=== PATIENT | female | born 1945 | race Caucasian/White ===

== ENCOUNTER 2019-05-01 12:05 | Emergency (ER) | payer MEDICARE, OTHER ==
[~2019-05-01] VITALS: Ht 162.6 cm; Wt 122.5 kg
[~2019-05-01 12:05] MED LIST: ACET500 PO; ALBU90OI6 INH; ALBU90OI61 INH; ALIS150T PO; ALPR.5 PO; ALPR.5CR PO; AMIO200 PO; ASPI325 PO; ASPI81CH PO; AZIT250 PO; Amiodarone HCl200 MG PO; BENZ100A PO; BIOTIN PO; Bactrim Ds Tab1 EACH PO; CALMAGZIN PO; CELE200 PO; CHOL10002 PO; CITA20 PO; CLON.1 PO; CLON.2 PO; CLOP75 PO; Catapres0.1 MG PO; Coumadin5 MG PO; Cymbalta60 MG PO; DEXILANT PO; DIPH50 PO; ENOX100I SC; ENOX40I SC; ERGO400 PO; FISH OIL 1,001000 MG PO; FISH1000 PO; FLUR15 PO; FURO40 PO; FURO80 PO; GABA100 PO; GABA300 PO; GLIP5ER PO; GLUCHON PO; HYDACE7.5 PO; HYDCHL12.5 PO; HYDR-86 PO; HYDR1TAB94 PO; Halcion0.25 MG PO; Hydrocodone-Ap1 EA23 PO; IRON PO; Isosorbide Mono30 MG PO; JANUMET PO; LEVFLO500 PO; LEVSOD100 PO; LEVSOD50 PO; LOSA50 PO; MAGNESIUM PO; MAGOXI400 PO; MECL25 PO; MELA3 PO; METF500 PO; METF500C PO; METO100 PO; METO100ER PO; METO2.5 PO; METO50ER PO; MULTIVITAMIN PO; MULVITMIND PO; NAPR500 PO; OLME20 PO; OMEP20ER PO; OXYACE5T PO; Omeprazole20 M1 PO; POTA10T PO; POTCHL10ER PO; POTCHL20ER PO; PRAV20 PO; PRAVASTATIN PO; PROM25 PO; Pedi-Dri 100,0060 GM TOP; Percocet 10-321 EACH PO; Percocet 5-3251 EACH PO; ROXICODONE5 MG PO; SERT100 PO; SITA50T2 PO; TEKTURNA PO; TERA5 PO; VENL75ER PO; VITAMIN D PO; WARF4 PO; WARF5 PO
[2019-05-01 12:58] LABS: BASOPHILS ABSOLUTE AUTO 0.03 K/mm3 (0.00-0.23); BASOPHILS PERCENT AUTO 1 % (0-2); EOSINOPHILS ABSOLUTE AUTO 0.21 K/mm3 (0.00-0.68); EOSINOPHILS PERCENT AUTO 4 % (0-6); Hematocrit 37.9 % (33.0-51.0); IMMATURE GRAN ABSOLUTE AUTO 0.02 K/mm3 (0.00-0.10); IMMATURE GRAN PERCENT AUTO 0 % (0-1); LYMPHOCYTES ABSOLUTE AUTO 1.53 K/mm3 (0.84-5.20); LYMPHOCYTES PERCENT AUTO 27 % (21-46); MONOCYTES ABSOLUTE AUTO 0.65 K/mm3 (0.16-1.47); MONOCYTES PERCENT AUTO 12 % (4-13); Mean Corpuscular HGB 28.6 pg (26.0-34.0); Mean Corpuscular HGB Conc 31.7 g/dL (31.5-36.5); Mean Corpuscular Volume 91 fL (80-100); Mean Platelet Volume 9.4 fL (9.1-12.4); NEUTROPHILS ABSOLUTE AUTO 3.21 K/mm3 (1.96-9.15); NEUTROPHILS PERCENT AUTO 57 % (41-73); Platelet Count 250 K/mm3 (150-400); RDW Coefficient Variation 13.7 % (11.7-14.2); RDW Standard Deviation 45.3 fL (35.1-46.3); Red Blood Cell Count 4.19 M/mm3 (3.80-5.20); White Blood Cell Count 5.65 K/mm3 (4.00-11.30)
[2019-05-01 13:18] LABS: Albumin, Blood 3.6 g/dL (3.4-5.0); Albumin/Globulin Ratio 1.1 (0.8-1.8); Bilirubin, Total 0.4 mg/dL (0.1-1.0); Bun/Creatinine Ratio 45.3 (12.0-20.0); Calcium, Blood 8.6 mg/dL (8.5-10.1); Creatinine, Blood 1.17 mg/dL (0.40-1.00); Globulin, Blood 3.3 g/dL (2.2-4.0); Potassium, Blood 3.6 mmol/L (3.5-5.5); Total Protein, Blood 6.9 g/dL (6.4-8.2)
[2019-05-01 13:21] LABS: International Normalized Ratio 1.52; Prothrombin Time Results 15.5 Sec (9.7-11.5)
== END 2019-05-01 14:18 | disposition home or self-care (01) ==
LOC: ER 12:05
PROVIDERS: Emergency Medicine
DX: R19.5 Other fecal abnormalities (principal); R79.1 Abnormal coagulation profile; R11.0 Nausea; E11.9 Type 2 diabetes mellitus without complications; I48.91 Unspecified atrial fibrillation; I10 Essential (primary) hypertension; Z86.73 Personal history of transient ischemic attack (TIA), and cerebral infarction without residual deficits; Z87.891 Personal history of nicotine dependence; Z88.0 Allergy status to penicillin; Z88.8 Allergy status to other drugs, medicaments and biological substances; Z91.040 Latex allergy status; Z79.899 Other long term (current) drug therapy; Z79.82 Long term (current) use of aspirin; Z79.01 Long term (current) use of anticoagulants; Z79.891 Long term (current) use of opiate analgesic
CPT/HCPCS: 36415; 80053; 82272; 85025; 85610; 99283

== ENCOUNTER 2019-10-22 07:18 | Day surgery (SDC) | payer MEDICARE, OTHER ==
[~2019-10-22 07:18] MED LIST changes: +TELM80 PO; +XARELTO15 MG PO
--- NOTE | 2019-10-22 08:07 | NUR ---
PATIENT WITH HR 67 AFTER IV START, PLAN TO ADMINISTER METOPROLOL 5 MG IV AND REASSESS FOR READINESS FOR EXAM. PATIENT PLACED ON MONITOR DURING IV ADMINISTRATION.
--- NOTE | 2019-10-22 08:23 | NUR ---
HEART RATE TO 60 BPM, TO CT FOR EXAM.
--- NOTE | 2019-10-22 09:04 | NUR ---
DISCHARGE INSTRUCTIONS GIVEN WITH STATED UNDERSTANDING. PATIENT AMBULATORY TO DISCHARGE.
== END 2019-10-22 22:46 | disposition home or self-care (01) ==
LOC: ORD 07:18 → CT 07:18 → ORD 07:30 → CT 08:00 → ORD 22:46
DX: I25.118 Atherosclerotic heart disease of native coronary artery with other forms of angina pectoris (principal); E11.9 Type 2 diabetes mellitus without complications; E78.5 Hyperlipidemia, unspecified; I11.0 Hypertensive heart disease with heart failure; I50.9 Heart failure, unspecified; I44.7 Left bundle-branch block, unspecified; I48.0 Paroxysmal atrial fibrillation; G47.33 Obstructive sleep apnea (adult) (pediatric); Z79.01 Long term (current) use of anticoagulants; Z79.899 Other long term (current) drug therapy; Z79.84 Long term (current) use of oral hypoglycemic drugs; Z87.891 Personal history of nicotine dependence; Z88.8 Allergy status to other drugs, medicaments and biological substances; Z88.0 Allergy status to penicillin
CPT/HCPCS: 75574; Q9967

== ENCOUNTER 2019-10-25 05:46 | Day surgery (SDC) | payer MEDICARE, OTHER ==
[~2019-10-25] VITALS: Ht 162.6 cm; Wt 125.0 kg
--- NOTE | 2019-10-25 13:40 | NUR ---
DISCHARGE GONE OVER WITH PT AND FRIEND, BOTH VERBALIZE UNDERSTANDING OF INSTRUCTIONS. SALINE LOCK OUT WITH CATHETER INTACT. TR BAND OFF, NO BLEEDING NOTED. CLOTH DOT PLACED OVER RIGHT RADIAL SITE. PT TO PRIVATE VEHICLE PER ESCORT AND W/C.
== END 2019-10-25 13:51 | disposition home or self-care (01) ==
LOC: MHTC 05:46
PROC: 4A023N8 Measurement of Cardiac Sampling and Pressure, Bilateral, Percutaneous Approach (ICD-10-PCS; principal; 2019-10-25)
PROC: B201YZZ Plain Radiography of Multiple Coronary Arteries using Other Contrast (ICD-10-PCS; principal; 2019-10-25)
PROC: B206YZZ Plain Radiography of Right and Left Heart using Other Contrast (ICD-10-PCS; principal; 2019-10-25)
DX: I25.10 Atherosclerotic heart disease of native coronary artery without angina pectoris (principal); I27.20 Pulmonary hypertension, unspecified; E66.01 Morbid (severe) obesity due to excess calories; I10 Essential (primary) hypertension; G47.33 Obstructive sleep apnea (adult) (pediatric); E11.42 Type 2 diabetes mellitus with diabetic polyneuropathy; E11.319 Type 2 diabetes mellitus with unspecified diabetic retinopathy without macular edema; I48.0 Paroxysmal atrial fibrillation; Z79.01 Long term (current) use of anticoagulants; Z88.8 Allergy status to other drugs, medicaments and biological substances; Z88.0 Allergy status to penicillin; Z87.891 Personal history of nicotine dependence; Z68.42 Body mass index [BMI] 45.0-49.9, adult; Z99.89 Dependence on other enabling machines and devices
CPT/HCPCS: 36415; 76937; 84132; 85347; 93460; 93571; 93572; 99152; 99153; C1769; C1887; C1894; J1644; J1940; J2250; J3010; J3480; J7030; Q9967

== ENCOUNTER 2019-11-16 14:15 | Inpatient (IN) | payer MEDICARE, OTHER ==
[~2019-11-16] VITALS: Ht 162.6 cm; Wt 124.3 kg
[2019-11-21] MEDS ORDERED: SPIR50 PO (06:25)
--- NOTE | 2019-11-21 06:42 | NUR ---
Ambulatory in Day Surgery History, Chart, Medications and Allergies reviewed before start of procedure.AUDIBLY WHEEZY, LUNGS TIGHT THROUGH OUT. SATS 92% ON RA.DUO NEB GIVEN. Patient confirms NPO status and agrees with scheduled surgery. Patient reports completing Chlorhexadine shower X2 prior to admission to hospital.Surgical site prepped with 2% Chlorhexidine cloth wipe.NOZYN AND PERIDEX PER ORTHO PROTOCOL.
[2019-11-21] MEDS ORDERED: TORSE20 PO (08:02)
--- NOTE | 2019-11-21 10:50 | NUR ---
11/21/19 1050 Nahomy Masters ALL COUNTS CORRECT
--- NOTE | 2019-11-21 19:53 | NUR ---
1240 ARRIVED TO ROOM SLING INPLACE TO LEFT ARM, DRESSING DRY AND INTACT TO LEFT SHOULDER AND POLAR PACK IN PLACE. PT REPORTS NO FEELING AT SITE OF INCISION. PT ABLE TO WIGGLE ALL FINGERS ON LEFT HAND AND SLIGHT AIRBRUSH ARTIST. PT REPORTS SOME MUSCLE CRAMP TYPE PAIN TO LEFT SIDE OF NECK AND UPPER LEFT ARM.
--- NOTE | 2019-11-21 19:55 | NUR ---
1730 OOB UP TO BATHROOM TO VOID AND THEN UP TO SIT IN CHAIR, POLAR PACK IN PLACE TO LEFT SHOULDER.
--- NOTE | 2019-11-21 19:55 | NUR ---
SUMMARY PT REPORTS NO PAIN TO LEFT SHOULDER, DRESSING DRY AND INTACT. PT REPORTS LEFT ARM AND HAND NUMB AND TINGLY. PT ABLE TO WIGGLE ALL FINGERS ON LEFT HAND AND HAS SLIGHT INSURANCE APPLICATION INVESTIGATOR. FINGERS ON LEFT HAND PINK/WARM AND RADIAL PULSES INTACT. PT SITTING IN CHAIR VISITING WITH FRIENDS
--- NOTE | 2019-11-22 04:46 | NUR ---
SHIFT SUMMARY PT IS A/O X4 AND STANDBY ASSIST FOR AMBULATION. PT HAS HAD SLING IN PLACE PER ORDERS. B/P WAS HIGH DURING THE NIGHT; PROVIDER NOTIFIED; MEDS GIVEN PER ORDERS. PT HAS AMBULATED MULT TIMES TO BATHROOM. TOLERATING PO INTAKE AND VOIDING. PT HAS HAD CPAP DURING THE NIGHT AND O2 PRN. CONT BIOX IN PLACE. PAIN MANAGED WITH PO PAIN MEDS PER ORDERS. ASSISTED WITH ADL'S PRN.
[2019-11-22 04:51] LABS: BASOPHILS ABSOLUTE AUTO 0.04 K/mm3 (0.00-0.23); BASOPHILS PERCENT AUTO 1 % (0-2); EOSINOPHILS ABSOLUTE AUTO 0.02 K/mm3 (0.00-0.68); EOSINOPHILS PERCENT AUTO 0 % (0-6); Hematocrit 30.3 % (33.0-51.0); Hemoglobin 9.7 g/dL (11.5-16.0); IMMATURE GRAN ABSOLUTE AUTO 0.06 K/mm3 (0.00-0.10); IMMATURE GRAN PERCENT AUTO 1 % (0-1); LYMPHOCYTES PERCENT AUTO 15 % (21-46); MONOCYTES ABSOLUTE AUTO 0.92 K/mm3 (0.16-1.47); MONOCYTES PERCENT AUTO 10 % (4-13); Mean Corpuscular HGB 29.8 pg (26.0-34.0); Mean Corpuscular Volume 93 fL (80-100); Mean Platelet Volume 9.4 fL (9.1-12.4); NEUTROPHILS ABSOLUTE AUTO 6.49 K/mm3 (1.96-9.15); NEUTROPHILS PERCENT AUTO 74 % (41-73); Platelet Count 210 K/mm3 (150-400); RDW Coefficient Variation 13.1 % (11.7-14.2); RDW Standard Deviation 44.6 fL (35.1-46.3); Red Blood Cell Count 3.26 M/mm3 (3.80-5.20); White Blood Cell Count 8.83 K/mm3 (4.00-11.30)
[2019-11-22 05:12] LABS: Bun/Creatinine Ratio 20.7 (12.0-20.0); Calcium, Blood 8.4 mg/dL (8.5-10.1); Creatinine, Blood 1.4 mg/dL (0.40-1.00); Magnesium, Blood 2.1 mg/dL (1.6-2.4); Potassium, Blood 4.6 mmol/L (3.5-5.5)
[2019-11-22] MEDS ORDERED: PROM25 PO (08:27)
[2019-11-22] MEDS ORDERED: ROXICODONE5 MG PO (08:27)
[2019-11-22] MEDS ORDERED: BACTRIM DS TAB1 EACH PO (08:28)
--- NOTE | 2019-11-22 12:39 | NUR ---
DISCHARGE SUMMARY PT A&OX4, VSS, LEFT FLOOR VIA WC TO GO HOME WITH FRIEND, WITH ALL PERSONAL POSSESSIONS INCLUDING DC PACKET AND 3 AQUACEL DRESSINGS; PT REP SCRIPTS ALREADY FILLED AT HOME. DC INSTRUCTIONS PROVIDED. PT REP UNDERSTANDING THOSE INSTRUCTIONS INCLUDING WHEN TO CHANGE AQUACEL DRESSING, FU WITH SG IN 2 WKS, WEAR SLING AT ALL TIMES TO REMIND PT NWB. IV DC'D.
== END 2019-11-22 11:49 | disposition home or self-care (01) | DRG 483 ==
LOC: SURS 11-21 05:49 → PRE IP 11-21 07:30 → SURS 11-21 11:37
PROVIDERS: ADMIT Orthopaedic Surgery
PROC: 0RRK0JZ Replacement of Left Shoulder Joint with Synthetic Substitute, Open Approach (ICD-10-PCS; principal; 2019-11-21 07:30)
DX: M19.012 Primary osteoarthritis, left shoulder (principal); Z68.42 Body mass index [BMI] 45.0-49.9, adult; I12.9 Hypertensive chronic kidney disease with stage 1 through stage 4 chronic kidney disease, or unspecified chronic kidney disease; E11.22 Type 2 diabetes mellitus with diabetic chronic kidney disease; E03.9 Hypothyroidism, unspecified; N18.3 Chronic kidney disease, stage 3 (moderate); E11.42 Type 2 diabetes mellitus with diabetic polyneuropathy; E66.01 Morbid (severe) obesity due to excess calories; K21.9 Gastro-esophageal reflux disease without esophagitis; Z96.611 Presence of right artificial shoulder joint; F32.9 Major depressive disorder, single episode, unspecified; Z95.5 Presence of coronary angioplasty implant and graft; Z79.01 Long term (current) use of anticoagulants; Z79.84 Long term (current) use of oral hypoglycemic drugs; Z79.899 Other long term (current) drug therapy
CPT/HCPCS: 36415; 73030; 80048; 82947; 83735; 85025; 88300; 94762; 97110; 97116; 97162; 97166; 97530; 97535; A9270-GY; J0171; J0735; J1100; J1885; J2250; J2370; J2405; J2704; J2710; J2795; J3010; J3370; J7120

== ENCOUNTER 2020-09-01 08:16 | Day surgery (SDC) | payer MEDICARE, OTHER ==
[~2020-09-01] VITALS: Ht 160 cm; Wt 124.7 kg
[~2020-09-01 08:16] MED LIST changes: +BACTRIM DS TAB1 EACH PO; +SPIR50 PO; +TORSE20 PO
--- NOTE | 2020-09-01 10:05 | NUR ---
09/01/20 Naila5 Mick Swift BUPIVACAINE 0.5 % MIXED WITH 0.15 ML EPI IN OR BY RN & VERIFIED, TO MAKE BUPIVACAINE 0.5% 1:200,000 PER ORDER FOR INJECTION BY DR NAPOLES.
== END 2020-09-01 12:50 | disposition home or self-care (01) ==
LOC: ORSCSDS 08:16
PROVIDERS: Orthopaedic Surgery
PROC: 0LX70ZZ Transfer Right Hand Tendon, Open Approach (ICD-10-PCS; principal; 2020-09-01 09:15)
PROC: 0PS Upper Bones, Reposition (ICD-10-PCS; principal; 2020-09-01 09:15)
DX: M18.11 Unilateral primary osteoarthritis of first carpometacarpal joint, right hand (principal); I10 Essential (primary) hypertension; I25.10 Atherosclerotic heart disease of native coronary artery without angina pectoris; E78.00 Pure hypercholesterolemia, unspecified; I25.2 Old myocardial infarction; G47.33 Obstructive sleep apnea (adult) (pediatric); J44.9 Chronic obstructive pulmonary disease, unspecified; N18.2 Chronic kidney disease, stage 2 (mild); E11.9 Type 2 diabetes mellitus without complications; E03.9 Hypothyroidism, unspecified; E66.01 Morbid (severe) obesity due to excess calories; Z68.42 Body mass index [BMI] 45.0-49.9, adult; Z79.899 Other long term (current) drug therapy; Z86.73 Personal history of transient ischemic attack (TIA), and cerebral infarction without residual deficits; Z79.01 Long term (current) use of anticoagulants
CPT/HCPCS: 82947; A9270; J0171; J1100; J2250; J2370; J2405; J2704; J3010; J3370

== ENCOUNTER 2020-09-04 12:14 | Emergency (ER) | payer MEDICARE, OTHER ==
[~2020-09-04] VITALS: Ht 160 cm; Wt 127.0 kg
== END 2020-09-04 13:52 | disposition home or self-care (01) ==
LOC: ER 12:14
DX: F41.9 Anxiety disorder, unspecified (principal); F32.9 Major depressive disorder, single episode, unspecified; I48.91 Unspecified atrial fibrillation; E11.9 Type 2 diabetes mellitus without complications; I10 Essential (primary) hypertension; J44.9 Chronic obstructive pulmonary disease, unspecified; K21.9 Gastro-esophageal reflux disease without esophagitis; E03.9 Hypothyroidism, unspecified; E78.00 Pure hypercholesterolemia, unspecified; Z88.0 Allergy status to penicillin; Z86.73 Personal history of transient ischemic attack (TIA), and cerebral infarction without residual deficits; Z91.09 Other allergy status, other than to drugs and biological substances; Z79.84 Long term (current) use of oral hypoglycemic drugs; Z79.899 Other long term (current) drug therapy; Z91.040 Latex allergy status; Z91.041 Radiographic dye allergy status
CPT/HCPCS: 99283

== ENCOUNTER 2020-12-12 11:11 | Day surgery (SDC) | payer MEDICARE, OTHER ==
[~2020-12-12] VITALS: Ht 162.6 cm; Wt 119.6 kg
[~2020-12-12 11:11] MED LIST changes: +Aspirin EC81 MG PO; +BETA.05TCA; +CATAPRES-TTS 11 EAC1 TOP; +DULO30 PO; +DULO60 PO; +FERREX 150150 M1 PO; +ISOSORBIDE MONO30 MG PO; +LEVSOD112 PO; +MERIBIN5 M1 PO; +METO5 PO; +Pravastatin Sod80 MG PO; +Terazosin HCl10 MG PO; +VOLTAREN ARTHRI20 GM; +[UNRECOGNIZED DRUG - OTHER] PO
--- NOTE | 2020-12-12 12:35 | NUR ---
12/12/20 1235 Nadia Salinas 1220 IV INFILTRATED WITH FIRST DOSE OF PROPOFOL. IV RESTARTED WITH 22G IN RIGHT HAND. PT. WAS SLEEPING AT THE TIME. RIGHT HAND IV DISCONTINUED IN RIGHT HAND, PRESSURE HELD & 2X2 WITH TAPE OVER SITE.
== END 2020-12-12 13:33 | disposition home or self-care (01) ==
LOC: ORSCSDS 11:11
PROVIDERS: Internal Medicine Gastroenterology
PROC: 0DBK8ZX Excision of Ascending Colon, Via Natural or Artificial Opening Endoscopic, Diagnostic (ICD-10-PCS; principal; 2020-12-12 12:30)
DX: Z12.11 Encounter for screening for malignant neoplasm of colon (principal); D12.2 Benign neoplasm of ascending colon; I10 Essential (primary) hypertension; I25.2 Old myocardial infarction; I25.10 Atherosclerotic heart disease of native coronary artery without angina pectoris; J44.9 Chronic obstructive pulmonary disease, unspecified; G47.33 Obstructive sleep apnea (adult) (pediatric); E11.42 Type 2 diabetes mellitus with diabetic polyneuropathy; Z79.84 Long term (current) use of oral hypoglycemic drugs; E66.01 Morbid (severe) obesity due to excess calories; Z68.42 Body mass index [BMI] 45.0-49.9, adult; Z79.899 Other long term (current) drug therapy
CPT/HCPCS: 82947; 88305; J2250; J2704; J7120

== ENCOUNTER → 2021-12-23 | Outpatient (CLI) | payer MEDICARE, OTHER ==
[2021-12-23 16:28] LABS: U Amphetamine Screen Not Detected; U Barbituate Screen Not Detected; U Benzodiazapine Screen Not Detected; U Buprenorphine Screen Not Detected; U Cannabinoids Screen Not Detected; U Cocaine Screen Not Detected; U Methadone Screen Not Detected; U Methamphetamine Screen Not Detected; U Opiates Screen Not Detected; U Oxycodone Screen DETECTED; U Phencyclidine Screen Not Detected; U Propoxyphene Screen Not Detected
== END | disposition home or self-care (01) ==
LOC: LAB SHORT 13:26 → LAB FUT 12-22 16:25
PROVIDERS: Internal Medicine
DX: Z51.81 Encounter for therapeutic drug level monitoring (principal); Z79.891 Long term (current) use of opiate analgesic

== ENCOUNTER → 2022-07-12 | Outpatient (CLI) | payer MEDICARE, OTHER | END | disposition home or self-care (01) | LOC: LAB SHORT 08:30 → PLD 08:30 | DX: L60.2 Onychogryphosis (principal); B35.1 Tinea unguium | CPT/HCPCS: 88305; 88312 ==

== ENCOUNTER 2022-10-10 10:56 | Emergency (ER) | payer OTHER, MEDICARE ==
[~2022-10-10] VITALS: Ht 162.6 cm; Wt 113.4 kg
== END 2022-10-10 13:20 | disposition home or self-care (01) ==
LOC: ER 10:56
DX: S30.0XXA Contusion of lower back and pelvis, initial encounter (principal); S70.01XA Contusion of right hip, initial encounter; W01.0XXA Fall on same level from slipping, tripping and stumbling without subsequent striking against object, initial encounter; E11.9 Type 2 diabetes mellitus without complications; I10 Essential (primary) hypertension; J44.9 Chronic obstructive pulmonary disease, unspecified; E03.9 Hypothyroidism, unspecified; Z87.891 Personal history of nicotine dependence; Z88.0 Allergy status to penicillin; Z88.8 Allergy status to other drugs, medicaments and biological substances; Z91.040 Latex allergy status; Z91.048 Other nonmedicinal substance allergy status; Z79.899 Other long term (current) drug therapy; Z79.84 Long term (current) use of oral hypoglycemic drugs
CPT/HCPCS: 72100; 73502; A9270

== ENCOUNTER 2024-03-22 13:03 | Inpatient (IN) | payer MEDICARE, OTHER ==
[~2024-03-22] VITALS: Ht 162.6 cm; Wt 116.4 kg
[2024-03-22] MEDS ORDERED: Ipratropium/Albuterol SulF 2.5-0.5MG/3 ML Amp INH ONE (13:20)
[2024-03-22] MEDS ORDERED: MethylPREDNISolone Sod Succ 125 MG Vial IV ONE (13:20)
[2024-03-22] MEDS ORDERED: NS 1,000 ML IV SCH ×3 (13:20→17:40)
[2024-03-22 13:40] LABS: BASOPHILS ABSOLUTE AUTO 0.04 K/mm3 (0.00-0.23); BASOPHILS PERCENT AUTO 1 % (0-2); EOSINOPHILS ABSOLUTE AUTO 0.32 K/mm3 (0.00-0.68); EOSINOPHILS PERCENT AUTO 5 % (0-6); Hematocrit 32.8 % (33.0-51.0); Hemoglobin 10.2 g/dL (11.5-16.0); IMMATURE GRAN ABSOLUTE AUTO 0.03 K/mm3 (0.00-0.10); IMMATURE GRAN PERCENT AUTO 1 % (0-1); LYMPHOCYTES ABSOLUTE AUTO 2.07 K/mm3 (0.84-5.20); LYMPHOCYTES PERCENT AUTO 33 % (21-46); MONOCYTES ABSOLUTE AUTO 0.69 K/mm3 (0.16-1.47); MONOCYTES PERCENT AUTO 11 % (4-13); Mean Corpuscular HGB Conc 31.1 g/dL (31.5-36.5); Mean Corpuscular Volume 100 fL (80-100); Mean Platelet Volume 9.3 fL (9.1-12.4); NEUTROPHILS ABSOLUTE AUTO 3.06 K/mm3 (1.96-9.15); NEUTROPHILS PERCENT AUTO 49 % (41-73); Platelet Count 196 K/mm3 (150-400); RDW Coefficient Variation 13.4 % (11.7-14.2); Red Blood Cell Count 3.29 M/mm3 (3.80-5.20); White Blood Cell Count 6.21 K/mm3 (4.00-11.30)
[2024-03-22] MEDS ORDERED: OXYCODONE-ACET1 EAC2 PO (13:46)
[2024-03-22 14:04] LABS: Albumin, Blood 3.5 g/dL (3.4-5.0); Albumin/Globulin Ratio 1.3 (0.8-1.8); Bilirubin, Total 0.4 mg/dL (0.1-1.0); Bun/Creatinine Ratio 18.3 (12.0-20.0); Calcium, Blood 7.9 mg/dL (8.5-10.1); Creatinine, Blood 1.91 mg/dL (0.40-1.00); Globulin, Blood 2.7 g/dL (2.2-4.0); Total Protein, Blood 6.2 g/dL (6.4-8.2)
[2024-03-22 15:00] LABS: PCO2 Venous 66.8 mmHg (38-42); pH Blood Venous 7.24 (7.34-7.37)
[2024-03-22 15:01] LABS: Base Excess Venous 1.4 mmol/L; Bicarbonate Venous 24.7 mmol/L (24.0-30.0)
[2024-03-22] MEDS ORDERED: Calcium Gluconate 10% 100 MG/ML INJ IV ONE (16:05)
[2024-03-22] MEDS ORDERED: Insulin Regular 100 Unit/ML 1ML Dose IV ONE (16:05)
[2024-03-22] MEDS ORDERED: Dextrose 50% 50 ML Syringe IV ONE (16:45)
[2024-03-22 16:55] LABS: Source, Urine Clean Catch
[2024-03-22 16:58] LABS: Appearance, Urine Clear (Clear); Bilirubin, Urine Neg (Neg); Blood, Urine Neg (Neg); Color, Urine Yellow (P-Yellow); Glucose Qualitative, Urine Neg (Neg); Ketones, Urine Neg (Neg); Leukocyte Esterase, Urine Neg (Neg); Nitrite, Urine Neg (Neg); Protein, Urine Neg (Neg); Urobilinogen, Urine NORM (Normal)
[2024-03-22] MEDS ORDERED: Albuterol 2.5 MG/3 ML VIAL INH PRN (17:45)
[2024-03-22] MEDS ORDERED: Ondansetron HCl 2 MG / ML 2ML Vial IV PRN (17:45)
[2024-03-22] MEDS ORDERED: CloNIDine HCL 0.1 MG Patch TOP SCH (17:50)
[2024-03-22] MEDS ORDERED: Ipratropium/Albuterol SulF 2.5-0.5MG/3 ML Amp INH SCH (17:50)
[2024-03-22] MEDS ORDERED: HydrALAZINE HCl 25 MG Tab PO PRN (17:55)
[2024-03-22] MEDS ORDERED: NS 500 ML IV ONE (18:00)
--- NOTE | 2024-03-22 20:05 | NUR ---
TRANSFER TO PCU PT ARRIVED TO PCU 18 FROM ED AT APPROXIMATELY 2004. PT TRANSFERRED TO HOSPITAL BED SBA. SPO2 >92% ON 3L NC. LUNGS DIMINISHED IN THE BASES. PT REPORTS USING CPAP AT NIGHT WITH 2L O2 BLEED IN, RT AWARE. BRYANT IN PLACE DRAINING YELLOW URINE TO GRAVITY. SBP 180'S, AWAITING CLONIDINE PATCH FROM PHARMACY. PT IS RESTING COMFORTABLY, CALL LIGHT WITHIN REACH, BREATHING EVEN AND UNLABORED.
[2024-03-22 20:13] VITALS: BP 155/83
[2024-03-22 20:22] LABS: Base Excess Venous -1.6 mmol/L; PCO2 Venous 41.8 mmHg (38-42); pH Blood Venous 7.36 (7.34-7.37)
[2024-03-22] MEDS ORDERED: Doxazosin Mesylate 8 MG TAB PO SCH (21:00)
[2024-03-22] MEDS ORDERED: Heparin Sodium,Porcine 5,000 UNIT/0.5 ML SDV SC SCH (21:00)
[2024-03-22] MEDS ORDERED: DULoxetine HCL 60 MG Capsule DR PO SCH (21:20)
[2024-03-22 21:46] VITALS: BP 132/101
[2024-03-22 22:00] VITALS: BP 147/95
[2024-03-22 22:45] LABS: Bun/Creatinine Ratio 21.4 (12.0-20.0); Calcium, Blood 8.3 mg/dL (8.5-10.1); Creatinine, Blood 1.54 mg/dL (0.40-1.00); Potassium, Blood 5.8 mmol/L (3.5-5.5)
[2024-03-22 23:48] VITALS: BP 161/70
[2024-03-23] VITALS (7 sets, daily range): BP systolic 146–194; BP diastolic 63–126
--- NOTE | 2024-03-23 05:00 | NUR ---
SHIFT SUMMARY PT IS A&O X4, ABLE TO MAKE NEEDS KNOWN. NO ACUTE CHANGES SINCE ASSUMPTION OF CARE. VSS, AFEBRILE SPO2 >90% ON 3L NC. PT UNABLE TO TOLERATE OUR CPAP MACHINE, SHE WILL SEE IF A FRIEND CAN BRING IN HER HOME MACHINE FOR TOMORROW IF NEEDED. SBP 130'S-180'S. LUNGS DIMINISHED IN THE BASES. SHE DENIES SOB OR CP AT THIS TIME. BRYANT IN PLACE, DRAINING YELLOW URINE TO GRAVITY. NS INFUSING. PT IS RESTING COMFORTABLY, CALL LIGHT WITHIN REACH, BREATHING EVEN AND UNLABORED.
[2024-03-23] MEDS ORDERED: Levothyroxine Sodium 0.112 MG Tab PO SCH (06:00)
[2024-03-23] MEDS ORDERED: Omeprazole 20 MG CapCR PO SCH (06:00)
[2024-03-23 06:09] LABS: Bun/Creatinine Ratio 22.1 (12.0-20.0); Calcium, Blood 8.1 mg/dL (8.5-10.1); Creatinine, Blood 1.45 mg/dL (0.40-1.00); Magnesium, Blood 2.9 mg/dL (1.6-2.4); Potassium, Blood 5.5 mmol/L (3.5-5.5)
[2024-03-23] MEDS ORDERED: Insulin Human Lispro 100 Units/ML 3ML Syringe SC SCH (07:30)
[2024-03-23] MEDS ORDERED: Metoprolol Succinate 50 MG TABCR PO SCH (09:00)
[2024-03-23] MEDS ORDERED: Isosorbide Mononitrate 30 MG TABCR PO SCH (09:00)
[2024-03-23] MEDS ORDERED: Iron Polysaccharides Complex 150 MG Cap PO SCH (09:00)
[2024-03-23] MEDS ORDERED: DULoxetine HCL 60 MG Capsule DR PO SCH (09:00)
[2024-03-23] MEDS ORDERED: Pravastatin Sodium 20 MG Tab PO SCH (09:00)
--- NOTE | 2024-03-23 10:50 | NUR ---
Bedside report from LUCILLE Stearns. The pt is alert, oriented and pleasantly conversant this morning. She requested that the ely be removed. per report and pt explaination, it was placed last night in the ED when she needed to void but was not allowed to get up to commode, possibly due to her condition at the time. This morning she is stating that she has no trouble voiding and would like the Ely out. She is able to get OOB to chair at bedside. Spo2 dropped to 86-88% during the activity, with noted shortness of breath; recovery only 89-90%. She was placed on 2 l/min O2. Ely was dc'd. SpO2 in 90s with 2 l/min O2 and quick recovry. Pt ate breakfast without dypnea. LUng sounds are clear, with only small expiratory wheezing heard in the bases, posteriorly.
--- NOTE | 2024-03-23 11:11 | NUR ---
Dr. Soto here to see the patient.
[2024-03-23] MEDS ORDERED: Empagliflozin 10 MG TAB PO SCH (12:00)
[2024-03-23] MEDS ORDERED: Isosorbide Mononitrate 60 MG TABCR PO SCH (12:00)
[2024-03-23] MEDS ORDERED: Losartan Potassium 50 MG Tab PO SCH (12:00)
--- NOTE | 2024-03-23 14:00 | NUR ---
Pt is going to take a nap. States the hospital CPAP is horribly uncomfortable; she is not used to it. Given O2 at 2 l/min while sleeping at her request. She normally uses CPAP at home, with O2 bleed in.
[2024-03-23] MEDS ORDERED: Aspirin 325 MG Tab PO ONE (15:00)
[2024-03-23] MEDS ORDERED: NS 1,000 ML IV SCH (16:00)
[2024-03-23] MEDS ORDERED: ELIQUIS5 M2 PO (16:29)
[2024-03-24 00:48] VITALS: BP 165/93
[2024-03-24 03:51] VITALS: BP 156/80
[2024-03-24 04:50] LABS: BASOPHILS ABSOLUTE AUTO 0.02 K/mm3 (0.00-0.23); BASOPHILS PERCENT AUTO 0 % (0-2); EOSINOPHILS ABSOLUTE AUTO 0.12 K/mm3 (0.00-0.68); EOSINOPHILS PERCENT AUTO 2 % (0-6); Hemoglobin 10.3 g/dL (11.5-16.0); IMMATURE GRAN ABSOLUTE AUTO 0.04 K/mm3 (0.00-0.10); IMMATURE GRAN PERCENT AUTO 1 % (0-1); LYMPHOCYTES ABSOLUTE AUTO 1.17 K/mm3 (0.84-5.20); LYMPHOCYTES PERCENT AUTO 16 % (21-46); MONOCYTES ABSOLUTE AUTO 0.55 K/mm3 (0.16-1.47); MONOCYTES PERCENT AUTO 8 % (4-13); Mean Corpuscular HGB 30.7 pg (26.0-34.0); Mean Corpuscular HGB Conc 32.2 g/dL (31.5-36.5); Mean Corpuscular Volume 96 fL (80-100); Mean Platelet Volume 9.4 fL (9.1-12.4); NEUTROPHILS ABSOLUTE AUTO 5.48 K/mm3 (1.96-9.15); NEUTROPHILS PERCENT AUTO 74 % (41-73); Platelet Count 179 K/mm3 (150-400); RDW Coefficient Variation 13.3 % (11.7-14.2); RDW Standard Deviation 46.7 fL (35.1-46.3); Red Blood Cell Count 3.35 M/mm3 (3.80-5.20); White Blood Cell Count 7.38 K/mm3 (4.00-11.30)
--- NOTE | 2024-03-24 04:52 | NUR ---
SHIFT SUMMARY PT IS A&O X4, ABLE TO MAKE NEEDS KNOWN. VSS, AFEBRILE SPO2 >90% ON 2-3L NC. SBP 130'S-160'S. LUNGS DIMINISHED IN THE BASES. SHE DENIES SOB OR CP AT THIS TIME. PT SBA TO RESTROOM. PT IS RESTING COMFORTABLY, CALL LIGHT WITHIN REACH, BREATHING EVEN AND UNLABORED.
[2024-03-24 05:21] LABS: Bun/Creatinine Ratio 21.9 (12.0-20.0); Calcium, Blood 8.2 mg/dL (8.5-10.1); Creatinine, Blood 1.14 mg/dL (0.40-1.00); Potassium, Blood 4.6 mmol/L (3.5-5.5); Thyroid Stimulating Hormone 0.279 uIU/mL (0.360-4.800)
[2024-03-24 08:23] VITALS: BP 160/103
[2024-03-24 11:39] VITALS: BP 186/103
[2024-03-24 11:43] VITALS: BP 186/103
[2024-03-24 12:28] VITALS: BP 181/95
[2024-03-24] MEDS ORDERED: Losartan Potassium 50 MG Tab PO ONE (12:30)
[2024-03-24] MEDS ORDERED: ASPI81CH PO (13:42)
[2024-03-24] MEDS ORDERED: JARDIANCE10 MG PO (13:42)
--- NOTE | 2024-03-24 16:40 | NUR ---
IVs REMOVED AND PRESSURE DRESSED. PT EXPRESSED UNDERSTANDING OF DC TEACHING AND DENIES FUTHER NEEDS. [facility] S[facility] PER PATIENT REQUEST
== END 2024-03-24 14:33 | disposition home or self-care (01) | DRG 189 ==
LOC: ER 13:03 → PCU 18:43
PROVIDERS: Emergency Medicine; Family Medicine; Nurse Practitioner Acute Care; ADMIT Hospitalist
DX: J96.01 Acute respiratory failure with hypoxia (principal); G92.8 Other toxic encephalopathy; I50.32 Chronic diastolic (congestive) heart failure; N17.9 Acute kidney failure, unspecified; I13.0 Hypertensive heart and chronic kidney disease with heart failure and stage 1 through stage 4 chronic kidney disease, or unspecified chronic kidney disease; J96.02 Acute respiratory failure with hypercapnia; Z66 Do not resuscitate; I69.920 Aphasia following unspecified cerebrovascular disease; N18.9 Chronic kidney disease, unspecified; E87.5 Hyperkalemia; I48.0 Paroxysmal atrial fibrillation; J44.9 Chronic obstructive pulmonary disease, unspecified; G47.33 Obstructive sleep apnea (adult) (pediatric); E03.9 Hypothyroidism, unspecified; E78.5 Hyperlipidemia, unspecified; Z79.899 Other long term (current) drug therapy; Z79.890 Hormone replacement therapy; Z79.4 Long term (current) use of insulin; Z79.84 Long term (current) use of oral hypoglycemic drugs; Z91.041 Radiographic dye allergy status; Z91.040 Latex allergy status; Z88.8 Allergy status to other drugs, medicaments and biological substances; Z91.048 Other nonmedicinal substance allergy status; I11.0 Hypertensive heart disease with heart failure; I25.10 Atherosclerotic heart disease of native coronary artery without angina pectoris; I05.0 Rheumatic mitral stenosis
CPT/HCPCS: 36415; 51702; 51798; 70450; 70496; 70498; 71045; 71260; 76770; 80048; 80053; 81003; 82803; 82947; 83735; 83880; 84132; 84443; 84484; 85025; 85379; 93005; 93010; 93306; 93308; 93321; 94640; 94660; 94664; 94761; 94762; A9270; J0612; J1644; J1815; J2919; J7030; J7040; Q9957; Q9967

== ENCOUNTER 2024-06-28 13:42 | Emergency (ER) | payer MEDICARE, OTHER ==
[~2024-06-28] VITALS: Ht 162.6 cm; Wt 111.1 kg
[~2024-06-28 13:42] MED LIST changes: +ELIQUIS5 M2 PO; +JARDIANCE10 MG PO; +OXYCODONE-ACET1 EAC2 PO
[2024-06-28] MEDS ORDERED: ACET500 PO (17:24)
[2024-06-28] MEDS ORDERED: TORS10 (17:24)
[2024-06-28] MEDS ORDERED: THERA-D2000 UNIT PO (17:25)
[2024-06-28] MEDS ORDERED: Lactated Ringer's 1,000 ML IV ONE (17:50)
[2024-06-28 20:15] VITALS: BP 187/91
== END 2024-06-28 20:49 | disposition home or self-care (01) ==
LOC: ER 13:42
DX: R00.2 Palpitations (principal); E11.22 Type 2 diabetes mellitus with diabetic chronic kidney disease; E78.00 Pure hypercholesterolemia, unspecified; E03.9 Hypothyroidism, unspecified; G47.00 Insomnia, unspecified; K21.9 Gastro-esophageal reflux disease without esophagitis; I48.91 Unspecified atrial fibrillation; G47.30 Sleep apnea, unspecified; R07.89 Other chest pain; Z86.73 Personal history of transient ischemic attack (TIA), and cerebral infarction without residual deficits; Z79.899 Other long term (current) drug therapy; Z88.0 Allergy status to penicillin; Z91.040 Latex allergy status; Z88.8 Allergy status to other drugs, medicaments and biological substances
CPT/HCPCS: 71046; 80053; 84484; 85025; 93005; 93010; 96360; 99285-25; J7120

== ENCOUNTER 2024-09-12 06:46 | Emergency (ER) | payer MEDICARE, OTHER ==
[~2024-09-12] VITALS: Ht 162.6 cm; Wt 113.4 kg
[~2024-09-12 06:46] MED LIST changes: +THERA-D2000 UNIT PO; +TORS10 PO
[2024-09-12] MEDS ORDERED: Albuterol 2.5 MG/3 ML VIAL INH SCH (07:25)
[2024-09-12 07:46] LABS: BASOPHILS ABSOLUTE AUTO 0.03 K/mm3 (0.00-0.23); BASOPHILS PERCENT AUTO 0 % (0-2); EOSINOPHILS PERCENT AUTO 0 % (0-6); IMMATURE GRAN ABSOLUTE AUTO 0.12 K/mm3 (0.00-0.10); IMMATURE GRAN PERCENT AUTO 1 % (0-1); LYMPHOCYTES ABSOLUTE AUTO 0.73 K/mm3 (0.84-5.20); LYMPHOCYTES PERCENT AUTO 6 % (21-46); MONOCYTES ABSOLUTE AUTO 1.29 K/mm3 (0.16-1.47); MONOCYTES PERCENT AUTO 10 % (4-13); Mean Corpuscular HGB 30.5 pg (26.0-34.0); Mean Corpuscular HGB Conc 31.6 g/dL (31.5-36.5); Mean Corpuscular Volume 96 fL (80-100); Mean Platelet Volume 8.9 fL (9.1-12.4); NEUTROPHILS ABSOLUTE AUTO 11.11 K/mm3 (1.96-9.15); NEUTROPHILS PERCENT AUTO 84 % (41-73); Platelet Count 163 K/mm3 (150-400); RDW Coefficient Variation 12.8 % (11.7-14.2); RDW Standard Deviation 45.6 fL (35.1-46.3); Red Blood Cell Count 3.94 M/mm3 (3.80-5.20); White Blood Cell Count 13.28 K/mm3 (4.00-11.30)
[2024-09-12 07:48] LABS: Source, Urine Straight Cath
[2024-09-12 08:06] LABS: Appearance, Urine Clear (Clear); Bilirubin, Urine Neg (Neg); Blood, Urine Neg (Neg); Glucose Qualitative, Urine Neg (Neg); Ketones, Urine Neg (Neg); Leukocyte Esterase, Urine Neg (Neg); Nitrite, Urine Neg (Neg); Protein, Urine Neg (Neg); Specific Gravity, Urine 1.015 (1.003-1.022); Urobilinogen, Urine NORM (Normal)
[2024-09-12 08:07] LABS: Color, Urine Pale Yellow (P-Yellow)
[2024-09-12 08:54] LABS: CORONAVIRUS COVID-19 AG Negative (NEGATIVE); INFLUENZA A AG Negative (NEGATIVE); INFLUENZA B AG Negative (NEGATIVE)
[2024-09-12 08:57] LABS: Albumin, Blood 3.3 g/dL (3.4-5.0); Bilirubin, Total 0.9 mg/dL (0.1-1.0); Bun/Creatinine Ratio 20.6 (12.0-20.0); Calcium, Blood 9.3 mg/dL (8.5-10.1); Creatinine, Blood 1.55 mg/dL (0.40-1.00); Globulin, Blood 3.3 g/dL (2.2-4.0); Potassium, Blood 4.6 mmol/L (3.5-5.5); Total Protein, Blood 6.6 g/dL (6.4-8.2)
[2024-09-12] MEDS ORDERED: XARELTO20 MG PO (09:15)
[2024-09-12] MEDS ORDERED: Imdur-ER60 MG PO (09:16)
[2024-09-12] MEDS ORDERED: METO100ER (09:16)
[2024-09-12] MEDS ORDERED: GABAPENTIN600 MG PO (09:16)
[2024-09-12] MEDS ORDERED: EUTHYROX100 MC1 PO (09:17)
[2024-09-12] MEDS ORDERED: SPIRONOLACTONE25 MG PO (09:17)
[2024-09-12] MEDS ORDERED: PROAIR DIGIHAL90 MCG (09:17)
[2024-09-12 10:37] VITALS: BP 122/56
[2024-09-13] MEDS ORDERED: AZIT250 PO (14:41)
[2024-09-13] MEDS ORDERED: BUDESONIDE-FO10.2 G2 INH (14:41)
== END 2024-09-12 11:29 | disposition home or self-care (01) ==
LOC: ER 06:46
PROVIDERS: Emergency Medicine
DX: I11.0 Hypertensive heart disease with heart failure (principal); I50.9 Heart failure, unspecified; J98.01 Acute bronchospasm; R53.1 Weakness; R53.81 Other malaise; E11.9 Type 2 diabetes mellitus without complications; Z88.8 Allergy status to other drugs, medicaments and biological substances; Z88.0 Allergy status to penicillin; Z91.040 Latex allergy status; Z79.82 Long term (current) use of aspirin; Z79.899 Other long term (current) drug therapy
CPT/HCPCS: 36416; 71045; 80053; 81003; 82550; 82947; 83605; 83690; 83880; 84484; 85025; 87428-QW; 93005; 93010; 94644; 94664; 99285-25

== ENCOUNTER 2024-09-13 10:45 | Emergency (ER) | payer MEDICARE, OTHER ==
[~2024-09-13] VITALS: Ht 162.6 cm; Wt 113.4 kg
[~2024-09-13 10:45] MED LIST changes: +EUTHYROX100 MC1 PO; +GABAPENTIN600 MG PO; +Imdur-ER60 MG PO; +METO100ER; +PROAIR DIGIHAL90 MCG; +SPIRONOLACTONE25 MG PO; +XARELTO20 MG PO
[2024-09-13] MEDS ORDERED: Ipratropium/Albuterol SulF 2.5-0.5MG/3 ML Amp INH ONE (11:50)
[2024-09-13 12:04] LABS: BASOPHILS ABSOLUTE AUTO 0.03 K/mm3 (0.00-0.23); BASOPHILS PERCENT AUTO 0 % (0-2); EOSINOPHILS ABSOLUTE AUTO 0.11 K/mm3 (0.00-0.68); EOSINOPHILS PERCENT AUTO 1 % (0-6); Hematocrit 33.9 % (33.0-51.0); IMMATURE GRAN ABSOLUTE AUTO 0.03 K/mm3 (0.00-0.10); IMMATURE GRAN PERCENT AUTO 0 % (0-1); LYMPHOCYTES ABSOLUTE AUTO 1.22 K/mm3 (0.84-5.20); LYMPHOCYTES PERCENT AUTO 13 % (21-46); MONOCYTES ABSOLUTE AUTO 0.78 K/mm3 (0.16-1.47); MONOCYTES PERCENT AUTO 8 % (4-13); Mean Corpuscular HGB 31.2 pg (26.0-34.0); Mean Corpuscular HGB Conc 32.4 g/dL (31.5-36.5); Mean Corpuscular Volume 96 fL (80-100); Mean Platelet Volume 9.9 fL (9.1-12.4); NEUTROPHILS ABSOLUTE AUTO 7.19 K/mm3 (1.96-9.15); NEUTROPHILS PERCENT AUTO 77 % (41-73); Platelet Count 173 K/mm3 (150-400); RDW Coefficient Variation 13.3 % (11.7-14.2); RDW Standard Deviation 47.3 fL (35.1-46.3); Red Blood Cell Count 3.53 M/mm3 (3.80-5.20); White Blood Cell Count 9.36 K/mm3 (4.00-11.30)
[2024-09-13 12:28] LABS: Albumin/Globulin Ratio 0.9 (0.8-1.8); Bilirubin, Total 0.5 mg/dL (0.1-1.0); Bun/Creatinine Ratio 18.7 (12.0-20.0); Calcium, Blood 9.1 mg/dL (8.5-10.1); Creatinine, Blood 1.98 mg/dL (0.40-1.00); Globulin, Blood 3.4 g/dL (2.2-4.0); Potassium, Blood 5.1 mmol/L (3.5-5.5); Total Protein, Blood 6.4 g/dL (6.4-8.2)
[2024-09-13 12:30] LABS: Influenza A, PCR NEGATIVE (NEGATIVE); Influenza B, PCR NEGATIVE (NEGATIVE); Resp Syncytial Virus, PCR NEGATIVE (NEGATIVE); SARS-Cov-2 (COVID-19) PCR, MMC NEGATIVE (NEGATIVE)
[2024-09-13] MEDS ORDERED: AZIT250 PO (14:41)
[2024-09-13] MEDS ORDERED: BUDESONIDE-FO10.2 G2 INH (14:41)
[2024-09-13 15:07] VITALS: BP 107/42
== END 2024-09-13 15:09 | disposition home or self-care (01) ==
LOC: ER 10:45
PROVIDERS: Emergency Medicine; Physician Assistant
DX: R05.8 Other specified cough (principal); E11.9 Type 2 diabetes mellitus without complications; I10 Essential (primary) hypertension; I48.91 Unspecified atrial fibrillation; J44.89 Other specified chronic obstructive pulmonary disease; K21.9 Gastro-esophageal reflux disease without esophagitis; J45.909 Unspecified asthma, uncomplicated; G47.00 Insomnia, unspecified; E03.9 Hypothyroidism, unspecified; E78.00 Pure hypercholesterolemia, unspecified; Z86.73 Personal history of transient ischemic attack (TIA), and cerebral infarction without residual deficits; Z87.891 Personal history of nicotine dependence; Z88.0 Allergy status to penicillin; Z88.8 Allergy status to other drugs, medicaments and biological substances; Z91.040 Latex allergy status; Z91.048 Other nonmedicinal substance allergy status; Z79.890 Hormone replacement therapy; Z79.84 Long term (current) use of oral hypoglycemic drugs; Z79.01 Long term (current) use of anticoagulants; Z79.82 Long term (current) use of aspirin; Z79.899 Other long term (current) drug therapy
CPT/HCPCS: 0241U; 71045; 80053; 85025; 94640; 94664; 99285-25

== ENCOUNTER → 2025-01-17 | Outpatient (CLI) | payer MEDICARE, OTHER ==
[~2025-01-17] MED LIST changes: +BUDESONIDE-FO10.2 G2 INH
[2025-01-17 11:09] LABS: BASOPHILS ABSOLUTE AUTO 0.02 K/mm3 (0.00-0.23); BASOPHILS PERCENT AUTO 0 % (0-2); EOSINOPHILS ABSOLUTE AUTO 0.13 K/mm3 (0.00-0.68); EOSINOPHILS PERCENT AUTO 2 % (0-6); Hematocrit 31.7 % (33.0-51.0); IMMATURE GRAN ABSOLUTE AUTO 0.03 K/mm3 (0.00-0.10); IMMATURE GRAN PERCENT AUTO 1 % (0-1); LYMPHOCYTES PERCENT AUTO 14 % (21-46); MONOCYTES ABSOLUTE AUTO 0.63 K/mm3 (0.16-1.47); MONOCYTES PERCENT AUTO 10 % (4-13); Mean Corpuscular HGB 30.1 pg (26.0-34.0); Mean Corpuscular HGB Conc 31.5 g/dL (31.5-36.5); Mean Corpuscular Volume 96 fL (80-100); Mean Platelet Volume 9.4 fL (9.1-12.4); NEUTROPHILS ABSOLUTE AUTO 4.62 K/mm3 (1.96-9.15); NEUTROPHILS PERCENT AUTO 73 % (41-73); Platelet Count 152 K/mm3 (150-400); RDW Coefficient Variation 13.6 % (11.7-14.2); RDW Standard Deviation 47.8 fL (35.1-46.3); Red Blood Cell Count 3.32 M/mm3 (3.80-5.20); White Blood Cell Count 6.33 K/mm3 (4.00-11.30)
[2025-01-17 11:18] LABS: Albumin, Blood 3.3 g/dL (3.4-5.0); Albumin/Globulin Ratio 1.1 (0.8-1.8); Bilirubin, Total 0.4 mg/dL (0.1-1.0); Bun/Creatinine Ratio 17.6 (12.0-20.0); Calcium, Blood 8.8 mg/dL (8.5-10.1); Creatinine, Blood 1.53 mg/dL (0.40-1.00); Potassium, Blood 4.4 mmol/L (3.5-5.5); Total Protein, Blood 6.3 g/dL (6.4-8.2)
== END | disposition home or self-care (01) ==
LOC: LAB SHORT 11:05 → LAB 11:05
DX: R06.02 Shortness of breath (principal)
CPT/HCPCS: 80053; 85025

== ENCOUNTER 2025-07-17 11:44 | Emergency (ER) | payer MEDICARE, OTHER ==
[~2025-07-17] VITALS: Ht 160 cm; Wt 102.1 kg
[2025-07-17 12:19] LABS: BASOPHILS ABSOLUTE AUTO 0.05 K/mm3 (0.00-0.23); BASOPHILS PERCENT AUTO 1 % (0-2); EOSINOPHILS ABSOLUTE AUTO 0.16 K/mm3 (0.00-0.68); EOSINOPHILS PERCENT AUTO 3 % (0-6); Hematocrit 36.0 % (33.0-51.0); Hemoglobin 10.9 g/dL (11.5-16.0); IMMATURE GRAN ABSOLUTE AUTO 0.02 K/mm3 (0.00-0.10); IMMATURE GRAN PERCENT AUTO 0 % (0-1); LYMPHOCYTES ABSOLUTE AUTO 1.06 K/mm3 (0.84-5.20); LYMPHOCYTES PERCENT AUTO 21 % (21-46); MONOCYTES ABSOLUTE AUTO 0.54 K/mm3 (0.16-1.47); MONOCYTES PERCENT AUTO 11 % (4-13); Mean Corpuscular HGB Conc 30.3 g/dL (31.5-36.5); Mean Corpuscular Volume 96 fL (80-100); NEUTROPHILS ABSOLUTE AUTO 3.15 K/mm3 (1.96-9.15); NEUTROPHILS PERCENT AUTO 63 % (41-73); NRBC ABSOLUTE 0.00 K/mm3 (0.00-0.02); NRBC Auto 0.0 /100 WBC (0.0-0.2); Platelet Count 168 K/mm3 (150-400); RDW Coefficient Variation 13.4 % (11.7-14.2); RDW Standard Deviation 47.9 fL (35.1-46.3)
[2025-07-17] MEDS ORDERED: CATAPRES0.1 MG PO (12:38)
[2025-07-17] MEDS ORDERED: SERT50 PO (12:41)
[2025-07-17] MEDS ORDERED: Robaxin750 MG PO (12:43)
[2025-07-17 12:58] LABS: Influenza A, PCR NEGATIVE (NEGATIVE); Influenza B, PCR NEGATIVE (NEGATIVE); Resp Syncytial Virus, PCR NEGATIVE (NEGATIVE); SARS-Cov-2 (COVID-19) PCR, MMC NEGATIVE (NEGATIVE)
[2025-07-17 13:04] LABS: Alanine Aminotransfer (ALT/SGP 21.0 U/L (12-78); Albumin, Blood 2.8 g/dL (3.4-5.0); Albumin/Globulin Ratio 0.8 (0.8-1.8); Anion Gap 11.0 mmol/L (3-11); Aspartate Aminotrans (AST/SGOT 22.0 U/L (12-37); Bilirubin, Total 0.3 mg/dL (0.1-1.0); Blood Urea Nitrogen 14.0 mg/dL (8-24); CO2, Blood 18.0 mmol/L (21-32); Calcium, Blood 8.4 mg/dL (8.5-10.1); Chloride, Blood 107.0 mmol/L (98-108); Creatinine, Blood 0.9 mg/dL (0.40-1.00); Globulin, Blood 3.6 g/dL (2.2-4.0); Glucose, Blood 99.0 mg/dL (70-99); Potassium, Blood 4.7 mmol/L (3.5-5.5); Sodium, Blood 131.0 mmol/L (136-145); Total Protein, Blood 6.4 g/dL (6.4-8.2)
[2025-07-17] MEDS ORDERED: HYDHCL25 PO (16:26)
[2025-07-17 16:30] VITALS: BP 198/79
== END 2025-07-17 16:50 | disposition home or self-care (01) ==
LOC: ER 11:44
PROVIDERS: Physician Assistant
DX: R00.2 Palpitations (principal); R06.02 Shortness of breath; I50.9 Heart failure, unspecified; E11.9 Type 2 diabetes mellitus without complications; I10 Essential (primary) hypertension; I48.91 Unspecified atrial fibrillation; Z59.89 Other problems related to housing and economic circumstances; Z88.0 Allergy status to penicillin; Z79.899 Other long term (current) drug therapy; Z88.8 Allergy status to other drugs, medicaments and biological substances
CPT/HCPCS: 71046; 80053; 83880; 84484; 85025; 87637; 93005; 93010; 99285-25; A9270

== ENCOUNTER 2025-07-25 11:03 | Day surgery (SDC) | payer MEDICARE, OTHER ==
[~2025-07-25] VITALS: Ht 160 cm; Wt 103.9 kg
[~2025-07-25 11:03] MED LIST changes: +Balanced Salt Epinephrine Irrigation Solution 500 mL IR SCH; +CATAPRES0.1 MG PO; +HYDHCL25 PO; +Moxifloxacin HCL 0.5 MG/0.1 ML 0.4MLSYR LEFTEYE SCH; +NS 500 ML IV ONE; +Ondansetron 4 MG SoluTab MM PRN; +PHENYLEPHRINE\\TROPICAMIDE\\TETRACAINE OPHTHALMIC DILATING SOLN LEFTEYE PRN; +Povidone-Iodine 450 DROP/30 ML Solution LEFTEYE SCH; +Povidone-Iodine 450 DROP/30 ML Solution ONE; +Robaxin750 MG PO; +SERT50 PO; +Tetracaine HCl/Pf 0.5% Opth Soln 4 ml ONE; +Triamcinolone Inj Susp 40 MG / ML 1ML Vial INJ SCH; +Triamcinolone Inj Susp 40 MG / ML 1ML Vial ONE
[2025-07-25] MEDS ORDERED: Ipratropium/Albuterol SulF 2.5-0.5MG/3 ML Amp ONE (11:43)
[2025-07-25] MEDS ORDERED: FentaNYL Citrate 50 MCG/ML 2 ML Injection ONE (12:12)
[2025-07-25] MEDS ORDERED: Midazolam HCl 1MG / ML 2ML Vial ONE (12:12)
--- NOTE | 2025-07-25 12:16 | NUR ---
07/25/25 1216 MONAE SMITH SKIN TEST TO LFA, INTIATED AT 1215. DUONEB COMPLETED AT 1215.
[2025-07-25] MEDS ORDERED: Naloxone HCl 0.4MG / ML 1ML Vial ONE (12:18)
[2025-07-25] MEDS ORDERED: NS 1,000 ML IV ONE (12:41)
[2025-07-25 13:15] VITALS: BP 149/68
== END 2025-07-25 13:39 | disposition home or self-care (01) ==
LOC: ORSCSDS 11:03
PROVIDERS: Ophthalmology
PROC: 08RK3JZ Replacement of Left Lens with Synthetic Substitute, Percutaneous Approach (ICD-10-PCS; principal; 2025-07-25 13:00)
DX: E11.36 Type 2 diabetes mellitus with diabetic cataract (principal); H25.812 Combined forms of age-related cataract, left eye; Z96.1 Presence of intraocular lens; I50.30 Unspecified diastolic (congestive) heart failure; J44.9 Chronic obstructive pulmonary disease, unspecified; I25.10 Atherosclerotic heart disease of native coronary artery without angina pectoris; E78.5 Hyperlipidemia, unspecified; I27.20 Pulmonary hypertension, unspecified; G47.33 Obstructive sleep apnea (adult) (pediatric); I48.0 Paroxysmal atrial fibrillation; E07.9 Disorder of thyroid, unspecified; E66.9 Obesity, unspecified; Z68.41 Body mass index [BMI] 40.0-44.9, adult; Z79.84 Long term (current) use of oral hypoglycemic drugs; Z79.01 Long term (current) use of anticoagulants; Z79.899 Other long term (current) drug therapy
CPT/HCPCS: 82947; J2003; J2250; J2312; J3010; J3301; J7040; V2632